=== PATIENT | female | born 1955 | race American Indian/Alaskan Native ===

== ENCOUNTER 2017-02-06 17:38 | Emergency (ER) | payer MEDICARE, MEDICAID ==
--- NOTE | 2017-02-06 19:20 | C.PDOC ---
History Of Present Illness 61 y/o female presents to ED with c/o left flank pain since this morning. Patient reports history of left flank pain. States pain worsens with voiding and radiates to her groin. Notes history of bladder surgery and bladder. Patient describes pain as 5/10. Denies fever or chills. Time Seen by Provider: 02/06/17 19:19 Chief Complaint (Nursing): Abdominal Pain History Per: Patient History/Exam Limitations: no limitations Onset/Duration Of Symptoms: Hrs Current Symptoms Are (Timing): Still Present Severity: Mild Pain Scale Rating Of: 5 Location Of Pain/Discomfort: Suprapubic Radiation Of Pain To:: Other (groin) Quality Of Discomfort: "Pain" Associated Symptoms: denies: Fever, Chills, Diarrhea Recent travel outside of the [place]: No Abnormal Vaginal Bleeding: No Past Medical History Reviewed: Historical Data, Nursing Documentation, Vital Signs Vital Signs: Last Vital Signs Temp 98.0 F 02/06/17 19:47 Pulse 93 H 02/06/17 19:47 Resp 20 02/06/17 19:47 BP 142/94 H 02/06/17 19:47 Pulse Ox 100 02/06/17 21:18 - Medical History PMH: Arthritis, HTN Family History: States: Unknown Family Hx - Social History Hx Alcohol Use: No Hx Substance Use: No - Immunization History Hx Tetanus Toxoid Vaccination: No Hx Influenza Vaccination: Yes Hx Pneumococcal Vaccination: No Review Of Systems Constitutional: Negative for: Fever, Chills Respiratory: Negative for: Cough, Wheezing Gastrointestinal: Positive for: Abdominal Pain, Other (flank pain ). Negative for: Nausea, Vomiting Genitourinary: Negative for: Hematuria Skin: Negative for: Rash Physical Exam - Physical Exam Appears: Non-toxic, No Acute Distress Skin: Warm, Dry Head: Atraumatic, Normacephalic Oral Mucosa: Moist Chest: Symmetrical Cardiovascular: Rhythm Regular Respiratory: No Rales, No Rhonchi, No Wheezing Gastrointestinal/Abdominal: Soft, Tenderness (suprapubic, left flank) Back: Normal Inspection Extremity: Normal ROM, Capillary Refill (< 2 sec. ) Neurological/Psych: Oriented x3, Normal Speech, Normal Cognition ED Course And Treatment - Laboratory Results Result Diagrams: 02/06/17 19:44 02/06/17 19:44 O2 Sat by Pulse Oximetry: 100 (RA) Pulse Ox Interpretation: Normal - CT Scan/US CT Abdomen/Pelvis Other Rad Studies (CT/US): Read By Radiologist, Radiology Report Reviewed CT/US Interpretation: IMPRESSION: No acute solid visceral abnormality; mild left ureterectasis, distal left ureter cannot be. visualized due to streak artifact from bilateral hip prostheses; possible constipation; mild ileus, no. obstruction Progress Note: Labs, pepcid, zofran, IV fluids. CT abdomen/pelvis and labs ordered. Medical Decision Making Medical Decision Making: Upon provider reevaluation patient is feeling better, is medically stable, and requires no further treatment in the ED at this time. Patient will be discharged home with Rx formacrobid and toradol. Counseling was provided and all questions were answered regarding diagnosis and need for follow up with the referred clinic. There is agreement to discharge plan. Return if symptoms persist or worsen. Disposition Counseled Patient/Family Regarding: Studies Performed, Diagnosis, Need For Followup - Disposition Referrals: [facility] [Outside] [facility] [Outside] Disposition: HOME/ ROUTINE Disposition Time: 19:20 Condition: FAIR Prescriptions: Nitrofurantoin Macrocrystals [Macrobid] 1 cap PO BID #14 cap traMADol [Ultram] 50 mg PO TID PRN #12 tab PRN Reason: Pain, Moderate (4-7) Instructions: Urinary Tract Infection in Women (DC), Abdominal Pain (ED), Gas and Bloating (ED) - Clinical Impression Clinical Impression: Abdominal pain, Constipation, UTI (urinary tract infection) - Scribe Statement The provider has reviewed the documentation as recorded by the Dilan Conner Provider Scribe Attestation: All medical record entries made by the Valdemaribana paula were at my direction and personally dictated by me. I have reviewed the chart and agree that the record accurately reflects my personal performance of the history, physical exam, medical decision making, and the department course for this patient. I have also personally directed, reviewed, and agree with the discharge instructions and disposition.
[2017-02-06] MEDS ORDERED: Sodium Chloride 0.9% 1,000 ML IV ONE (19:25)
[2017-02-06] MEDS ORDERED: Sodium Chloride 0.9% 1,000 ML ONE (19:36)
[2017-02-06 19:48] LABS: BASO # 0.1 K/uL (0.0-0.2); BASO % 1.2 % (0.0-2.0); EOS # 0.6 K/uL (0.0-0.7); EOS % 6.4 % (0.0-4.0); HEMATOCRIT 41.5 % (34.0-47.0); LYMPH # 2.1 K/uL (1.0-4.3); LYMPH % 22.6 % (20.0-40.0); MEAN CELL VOLUME 94.1 fL (81.0-99.0); MEAN CORPUSCULAR HEMOGLOBIN 30.8 pg (27.0-31.0); MEAN CORPUSCULAR HGB CONC 32.7 g/dL (33.0-37.0); MEAN PLATELET VOLUME 7.6 fL (7.2-11.7); MONO # 0.5 K/uL (0.0-0.8); MONO % 5.5 % (0.0-10.0); NRBC % 0.1 % (0.0-2.0); RED CELL DISTRIBUTION WIDTH 14.4 % (11.5-14.5); WHITE BLOOD COUNT 9.1 K/uL (4.8-10.8)
[2017-02-06 19:50] VITALS: RESP 20
[2017-02-06 19:55] LABS: CHLORIDE 99 mmol/L (98-107)
[2017-02-06 19:56] LABS: POTASSIUM 3.8 mmol/L (3.6-5.2); RBC URINE 47 /hpf (0-3); SODIUM 138 mmol/L (132-148); URINE BACTERIA MOD (<OCC); URINE BILIRUBIN NEGATIVE (NEGATIVE); URINE BLOOD 2+ (NEGATIVE); URINE COLOR Yellow (YELLOW); URINE GLUCOSE (UA) NORMAL (Normal); URINE KETONE NEGATIVE (NEGATIVE); URINE LEUKOCYTE ESTERASE 3+ Leu/uL (Negative); URINE PROTEIN 1+ mg/dL (NEGATIVE); URINE UROBILINOGEN NORMAL mg/dL (0.2-1.0); WBC URINE 225 /hpf (0-5)
[2017-02-06 19:58] LABS: ALB/GLOB RATIO 1.5 (1.0-2.1); ALKALINE PHOSPHATASE 79 U/L (38-126); AST/SGOT 25 U/L (14-36); BILIRUBIN,TOTAL 0.3 mg/dL (0.2-1.3); BLOOD UREA NITROGEN 10 mg/dL (7-17); CARBON DIOXIDE 29 mmol/L (22-30); GFR AFRICAN-AMERICAN > 60; TOTAL PROTEIN 7.7 g/dL (6.3-8.3)
[2017-02-06 19:59] LABS: ALT/SGPT 29 U/L (9-52); CALCIUM 9.2 mg/dl (8.6-10.4); GLUCOSE,RANDOM 67 mg/dL (65-105)
[2017-02-06] MEDS ORDERED: Morphine 4 MG/ML VIAL ONE (20:08)
--- NOTE | 2017-02-06 21:15 | CT ---
EXAM: CT Abdomen and Pelvis Without Intravenous Contrast CLINICAL HISTORY: 61 years old, female; Pain; Abdominal pain; Flank; Left; Additional info: Left flank pain, HX of bladder lift and ureter TECHNIQUE: Axial computed tomography images of the abdomen and pelvis without intravenous contrast. This CT exam was performed using one or more of the following dose reduction techniques: automated exposure control, adjustment of the mA and/or kV according to patient size, and/or use of iterative reconstruction technique. Coronal and sagittal reformatted images were created and reviewed. EXAM DATE/TIME: 02/06/2017 8:04 PM COMPARISON: There are no prior studies for comparison. FINDINGS: Lower thorax: Heart size is normal. There is a small hiatal hernia. There is minimal atelectasis and scarring at the lung bases. ABDOMEN: Liver: unremarkable Gallbladder and bile ducts: unremarkable Pancreas: unremarkable Spleen: unremarkable Adrenals: There is bilateral adrenal thickening. Kidneys and ureters: Right kidney is unremarkable. There is focal left renal scarring. There are no renal stones. There is no pelvocaliectasis. There is mild left ureterectasis. Distal ureter is obscured by streak artifact from the hip prostheses Stomach and bowel: Stomach is almost empty. Rotation is normal. Small bowel is mildly distended with fluid and air. Distention is radius distally. There is mild fecalization of the terminal ileum. Appendix is not identified. There is moderate stool in the colon. Appendix: See above. PELVIS: Bladder: Streak limits evaluation of the bladder. Reproductive: Streak artifact obscures much of the pelvis. Pelvic organs are not identified and may be absent. ABDOMEN and PELVIS: Intraperitoneal space: There is no definite fluid in the pelvis. There is no free air. Bones/joints: There are bilateral hip prostheses. There is extensive streak artifact. There are degenerative changes in the osseus structures. Soft tissues: There is a very small fat containing umbilical hernia. Vasculature: There are vascular calcifications. Lymph nodes: There is no pathologic adenopathy. IMPRESSION: No acute solid visceral abnormality; mild left ureterectasis, distal left ureter cannot be visualized due to streak artifact from bilateral hip prostheses; possible constipation; mild ileus, no obstruction Additional findings as described above.
[2017-02-06 21:55] VITALS: BP 149/97; PULSE 82; TEMP 98.5; O2SAT 99
== END 2017-02-06 21:55 | disposition home or self-care (01) ==
LOC: C.ER 17:38
DX: K59.00 Constipation, unspecified (principal); N39.0 Urinary tract infection, site not specified; R10.9 Unspecified abdominal pain
CPT/HCPCS: 74176; 80053; 81001; 83690; 85025; 85610; 85730; 96361; 96374; 96375; 99284; J1885; J2270; J2405; J7040

== ENCOUNTER 2017-04-01 06:48 | Observation (INO) | payer MEDICARE, MEDICAID ==
--- NOTE | 2017-04-01 07:52 | C.PDOC ---
History Of Present Illness 61 Y/O FEMALE, PMHx OF HTN, PRESENTS TO ED WITH C/O PERSISTENT HEADACHE ASSOCIATED WITH NAUSEA SINCE YESTERDAY. PT STATES SHE HAS NOT TAKEN LISINOPRIL IN 5 DAYS. ALSO REPORTS PERSISTENT CHEST TIGHTNESS, DESCRIBED BURNING SENSATION. DENIES COUGH, SOB, DIZZINESS, VISUAL CHANGES, VOMITING, SOB, NEW WEAKNESS OR NUMBNESS, OR OTHER ASSOCIATED SX. Time Seen by Provider: 04/01/17 07:26 Chief Complaint (Nursing): Headache History Per: Patient History/Exam Limitations: no limitations Onset/Duration Of Symptoms: Days Current Symptoms Are (Timing): Still Present Associated Symptoms: Nausea. denies: Blurred Vision, Vomiting Recent travel outside of the [place]: No Past Medical History Reviewed: Historical Data, Nursing Documentation, Vital Signs Vital Signs: Last Vital Signs Temp 98.7 F 04/01/17 10:09 Pulse 59 L 04/01/17 10:09 Resp 16 04/01/17 10:09 BP 125/75 04/01/17 10:09 Pulse Ox 95 04/01/17 10:51 - Medical History PMH: Arthritis, HTN Family History: States: Unknown Family Hx - Social History Hx Alcohol Use: No Hx Substance Use: No - Immunization History Hx Tetanus Toxoid Vaccination: No Hx Influenza Vaccination: Yes Hx Pneumococcal Vaccination: No Review Of Systems Except As Marked, All Systems Reviewed And Found Negative. Constitutional: Negative for: Fever, Chills Cardiovascular: Positive for: Chest Pain ("TIGHTNESS"). Negative for: Palpitations, Light Headedness Respiratory: Negative for: Cough, Shortness of Breath, Wheezing Gastrointestinal: Positive for: Nausea. Negative for: Vomiting, Abdominal Pain Musculoskeletal: Negative for: Neck Pain Skin: Negative for: Rash Neurological: Positive for: Headache. Negative for: Dizziness Physical Exam - Physical Exam Appears: Non-toxic, Other (MODERATE DISTRESS) Skin: Warm, Dry Head: Atraumatic, Normacephalic Eye(s): bilateral: Normal Inspection, EOMI Oral Mucosa: Moist Neck: Supple Chest: Symmetrical Cardiovascular: Rhythm Regular Respiratory: Normal Breath Sounds, No Accessory Muscle Use, No Rales, No Rhonchi , No Wheezing Gastrointestinal/Abdominal: Soft, No Tenderness, No Guarding, No Rebound Back: Normal Inspection Extremity: Normal ROM, Capillary Refill (< 2 SEC.) Neurological/Psych: Oriented x3, Normal Speech, Normal Cognition ED Course And Treatment - Laboratory Results Result Diagrams: 04/01/17 08:20 04/01/17 08:20 ECG: Interpreted By Me ECG Rhythm: Sinus Bradycardia ECG Interpretation: Normal Rate From EC O2 Sat by Pulse Oximetry: 95 Pulse Ox Interpretation: Normal - CT Scan/US CT HEAD Other Rad Studies (CT/US): Read By Radiologist, Radiology Report Reviewed CT/US Interpretation: IMPRESSION: Chronic microvascular ischemic change. Sinus mucosal disease. If focal neurologic deficit persists, consider MRI. Progress - Data Reviewed Data Reviewed: Lab, Diagnostic imaging, EKG, Old records - Critical Care Citical Care: Excluding Proc Time Critical Care Time: 120 minutes Medical Decision Making Medical Decision Making: PT ADVISED POSSIBILITY FOR HOSPITAL ADMISSION BASED ON SYMPTOMATIC PRESENTATION , INITIALLY STATES SHE DOES NOT WANT TO BE ADMITTED. ED OBSERVATION Discharge: Yes Date of observation admission: 04/01/17 Time of observation admission: 07:30 - Observation admission statement Patient is being placed in observation because:: HEADACHE; CP; UNCONTROLL HTN - Goals of Observation Goals of observation are:: RO BLEED; RO ACS; SX IMPROVE; NEURO INTACT - Progress Note Progress Note: 04/01/17 10:49 FEELS BETTER. STILL W RESIDUAL PERSON BUT BETTER THAN BEFORE. 125/70. PT DOESNT WANT ADMISSION, WILL DC HOME. REFILL HTN RX, OTC PAIN MEDS Disposition Counseled Patient/Family Regarding: Studies Performed, Diagnosis, Need For Followup, Rx Given - Disposition Disposition: HOME/ ROUTINE Disposition Time: 10:50 Condition: IMPROVED - Clinical Impression Clinical Impression: Headache, Chest pain, Hypertension - Scribe Statement The provider has reviewed the documentation as recorded by the Dilan CUNHA Provider Attestation: All medical record entries made by the Dilan were at my direction and personally dictated by me. I have reviewed the chart and agree that the record accurately reflects my personal performance of the history, physical exam, medical decision making, and the department course for this patient. I have also personally directed, reviewed, and agree with the discharge instructions and disposition.
[2017-04-01] MEDS ORDERED: Labetalol 25mg/5ml Syringe IVP STA (07:53)
[2017-04-01] MEDS ORDERED: Labetalol 25mg/5ml Syringe ONE (08:04)
[2017-04-01 08:34] LABS: BASO % 0.7 % (0.0-2.0); EOS # 0.5 K/uL (0.0-0.7); EOS % 10.1 % (0.0-4.0); LYMPH # 1.7 K/uL (1.0-4.3); LYMPH % 32.3 % (20.0-40.0); MEAN CELL VOLUME 94.6 fL (81.0-99.0); MEAN CORPUSCULAR HEMOGLOBIN 30.7 pg (27.0-31.0); MEAN CORPUSCULAR HGB CONC 32.5 g/dL (33.0-37.0); MEAN PLATELET VOLUME 7.1 fL (7.2-11.7); MONO # 0.5 K/uL (0.0-0.8); MONO % 9.4 % (0.0-10.0); NEUT # 2.5 K/uL (1.8-7.0); NEUT % 47.5 % (50.0-75.0); NRBC % 0.2 % (0.0-2.0); RBC 4.23 Mil/uL (3.80-5.20); RED CELL DISTRIBUTION WIDTH 14.8 % (11.5-14.5); WHITE BLOOD COUNT 5.3 K/uL (4.8-10.8)
[2017-04-01 09:03] LABS: BLOOD UREA NITROGEN 9 mg/dL (7-17); GFR AFRICAN-AMERICAN > 60; GFR NON-AFRICAN AMERICAN > 60
[2017-04-01 09:04] LABS: CALCIUM 8.9 mg/dl (8.6-10.4)
--- NOTE | 2017-04-01 09:05 | CT ---
PROCEDURE: CT HEAD WITHOUT CONTRAST. HISTORY: Headache. Hypertension. Evaluate for hemorrhage. COMPARISON: None available. TECHNIQUE: Axial computed tomography images were obtained through the head/brain without intravenous contrast. Radiation dose: Total exam DLP = 747 mGy-cm. This CT exam was performed using one or more of the following dose reduction techniques: Automated exposure control, adjustment of the mA and/or kV according to patient size, and/or use of iterative reconstruction technique. FINDINGS: HEMORRHAGE: No intracranial hemorrhage. BRAIN: No mass effect or edema. Scattered focal lucencies in the subcortical and periventricular white matter suggestive for chronic microvascular ischemic change. VENTRICLES: Unremarkable. No hydrocephalus. CALVARIUM: Unremarkable. PARANASAL SINUSES: Mucosal thickening of the ethmoid air cells. MASTOID AIR CELLS: Unremarkable as visualized. No inflammatory changes. OTHER FINDINGS: None. IMPRESSION: Chronic microvascular ischemic change. Sinus mucosal disease. If focal neurologic deficit persists, consider MRI.
--- NOTE | 2017-04-01 09:53 | RAD ---
PROCEDURE: CHEST RADIOGRAPH, 1 VIEW HISTORY: CHEST PAIN, HTN COMPARISON: None available. FINDINGS: LUNGS: Mild venous congestion. PLEURA: No pneumothorax or pleural fluid seen. CARDIOVASCULAR: Prominent and tortuous aorta. OSSEOUS STRUCTURES: No significant abnormalities. VISUALIZED UPPER ABDOMEN: Normal. OTHER FINDINGS: None. IMPRESSION: Mild venous congestion.
[2017-04-01 10:11] VITALS: TEMP 98.7
[2017-04-01 10:51] VITALS: O2SAT 95
[2017-04-01 11:37] VITALS: BP 137/84; PULSE 62; RESP 18
--- NOTE | 2017-04-04 14:12 | CARD ---
APPROVED REPORT EKG Measurement Heart [id number] VT [id number] [id number] <Conclusion> Sinus bradycardia Otherwise normal ECG
== END 2017-04-01 10:51 | disposition home or self-care (01) ==
LOC: C.ER 06:48 → C.9OBSV 07:30
PROVIDERS: ADMIT Emergency Medicine; ATTEND Emergency Medicine
DX: I16.0 Hypertensive urgency (principal); R51 Headache; R07.9 Chest pain, unspecified
CPT/HCPCS: 36415; 70450; 71010; 80048; 84484; 85025; 96374; 96375; 99285; G0378; J1885

== ENCOUNTER 2017-05-28 11:15 | Emergency (ER) | payer MEDICARE, MEDICAID ==
[2017-05-28 11:25] VITALS: RESP 18; TEMP 98.4
--- NOTE | 2017-05-28 11:42 | C.PDOC ---
History Of Present Illness 61 y/o female presents to the ED for evaluation of lower back pain which began yesterday. Patient notes her pain began after he was lifting heavy boxes at home. Pain occasionally radiates down both of her legs. Patient has a history of lower back pain and notes her current symptoms are similar to prior episodes. She denies fever/chills, dysuria/hematuria, urinary/bowel incontinence , urinary retention, abdominal pain, extremity numbness/weakness , direct trauma. Time Seen by Provider: 05/28/17 11:37 Chief Complaint (Nursing): Back Pain History Per: Patient History/Exam Limitations: no limitations Onset/Duration Of Symptoms: Hrs Current Symptoms Are (Timing): Still Present Quality Of Discomfort: "Pain" Severity: Moderate Previous Symptoms: Back Pain, Chronic Pain Associated Symptoms: denies: Incontinence, New Weakness, New Numbness Additional History Per: Patient Past Medical History Reviewed: Historical Data, Nursing Documentation, Vital Signs Vital Signs: Last Vital Signs Temp 98.4 F 05/28/17 11:23 Pulse 88 05/28/17 12:47 Resp 18 05/28/17 12:47 BP 132/75 05/28/17 12:47 Pulse Ox 99 05/28/17 14:34 - Medical History PMH: Arthritis, HTN Surgical History: No Surg Hx Family History: States: No Known Family Hx - Social History Hx Alcohol Use: No Hx Substance Use: No - Immunization History Hx Tetanus Toxoid Vaccination: No Hx Influenza Vaccination: Yes Hx Pneumococcal Vaccination: No Review Of Systems Except As Marked, All Systems Reviewed And Found Negative. Constitutional: Negative for: Fever, Chills Cardiovascular: Negative for: Chest Pain Respiratory: Negative for: Shortness of Breath Gastrointestinal: Negative for: Nausea, Vomiting, Abdominal Pain, Diarrhea Genitourinary: Negative for: Dysuria, Incontinence, Hematuria Musculoskeletal: Positive for: Back Pain (lower ) Neurological: Negative for: Weakness, Numbness Physical Exam - Physical Exam Appears: Well, Non-toxic, Other (in mild to moderate pain, moaning, ambulatory in the ED ) Skin: Normal Color, Warm, Dry Head: Normacephalic Eye(s): bilateral: Normal Inspection Oral Mucosa: Moist Neck: Supple Chest: Symmetrical Cardiovascular: Rhythm Regular Respiratory: Normal Breath Sounds, No Rales, No Rhonchi, No Wheezing Gastrointestinal/Abdominal: Normal Exam, Bowel Sounds, Soft, No Tenderness Back: No CVA Tenderness, No Vertebral Tenderness, Paraspinal Tenderness (lumbar ) Extremity: Normal ROM, No Tenderness, No Pedal Edema, No Calf Tenderness, Capillary Refill (<2 seconds ), No Deformity Extremity: Bilateral: Atraumatic, Normal Color And Temperature, Normal ROM Neurological/Psych: Oriented x3, Normal Motor, Normal Sensation Gait: Steady ED Course And Treatment O2 Sat by Pulse Oximetry: 99 (on RA ) Pulse Ox Interpretation: Normal Progress Note: Patient given Toradol IM, Valium PO, and Prednisone PO. Reevaluation Time: 12:45 Reassessment Condition: Improved (On reassessment, patient states her pain has improved and she is feeling better. Patient ambulating normally in ED. Rxs given vfor toradol and valium, and patient instructed to follow up with PMD/ clinic in 1-2 days. She understands she should return to ED if symptoms worsen. 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 REVIEWED: 02/07/2017 2 02/06/2017 TRAMADOL HCL 50 MG TABLET 12.0 4 [place] SAP [id number] BRIDGER ( [id number]) 0 15.0 Comm Ins [place] 01/03/2017 1 01/03/2017 ALPRAZOLAM 0.25 MG TABLET 30.0 30 DO SIE [id number] RITE ( 8779) 0 Private Pay [place] 11/19/2016 1 11/19/2016 ACETAMINOPHEN-COD #3 TABLET 10.0 1 MA GTZ [id number] RITE ( 8779) 0 45.0 [place] 11/16/2016 1 11/16/2016 HYDROCODON-ACETAMINOPHEN 5-325 15.0 3 TA AFO [id number] RITE (8779) 0 25.0 [place] 10/01/2016 1 10/01/2016 OXYCODONE-ACETAMINOPHEN 5-325 10.0 2 JA IMM [id number] WALGR (0658) 0 37.5 [place] 09/29/2016 4 09/29/2016 TRAMADOL HCL 50 MG TABLET 12.0 3 CH HARVEY [id number] SHOP ( 0479) 0 20.0 [place] 09/27/2016 4 09/27/2016 ALPRAZOLAM 0.25 MG TABLET 30.0 30 DO SIE [id number] SHOP ( 2527) 0 [place] 09/25/2016 4 09/25/2016 ALPRAZOLAM 0.25 MG TABLET 5.0 5 MA HOL [id number] SHOP ( 6757) 0 [place] 08/17/2016 3 08/17/2016 ALPRAZOLAM 0.25 MG TABLET 30.0 30 DO SIE [id number] RITE ( 8779) 0 [place] 07/14/2016 4 07/14/2016 ALPRAZOLAM 0.25 MG TABLET 30 30 Do Sie [id number] SHOP ( 6794) 0 [place] 06/18/2016 1 06/09/2016 ALPRAZOLAM 0.25 MG TABLET 30 30 Do Sie [id number] WALGR ( 5699) 0 [place] Disposition Counseled Patient/Family Regarding: Diagnosis, Need For Followup, Rx Given - Disposition Referrals: [facility] [Outside] Disposition: HOME/ ROUTINE Disposition Time: 12:45 Condition: STABLE Additional Instructions: FOLLOW UP WITH YOUR DOCTOR/CLINIC IN 1-2 DAYS USE MEDICATIONS DIRECTED RETURN TO ER IF SYMPTOMS WORSEN Prescriptions: diaZEpam [Valium] 5 mg PO BID PRN #12 tab PRN Reason: Muscle Spasm Ketorolac Tromethamine [Toradol] 10 mg PO BID PRN #15 tab PRN Reason: pain predniSONE [predniSONE Tab] 40 mg PO DAILY #8 tab Instructions: Acute Low Back Pain (ED) Forms: [email or web address] (Cuban) Print Language: GERMAN - POA Present On Arrival: None - Clinical Impression Clinical Impression: Low back pain - Scribe Statement The provider has reviewed the documentation as recorded by the Scribe (Marlys Siddiqui) Provider Attestation: All medical record entries made by the Scribe were at my direction and personally dictated by me. I have reviewed the chart and agree that the record accurately reflects my personal performance of the history, physical exam, medical decision making, and the department course for this patient. I have also personally directed, reviewed, and agree with the discharge instructions and disposition.
[2017-05-28 12:48] VITALS: BP 132/75; PULSE 88
[2017-05-28 14:26] VITALS: O2SAT 99
== END 2017-05-28 12:48 | disposition home or self-care (01) ==
LOC: C.ER 11:15
DX: M54.5 Low back pain (principal)
CPT/HCPCS: 96372; 99283; J1885

== ENCOUNTER 2017-09-12 11:57 | Inpatient (IN) | payer OTHER, MEDICAID ==
[2017-09-12 13:06] LABS: BASO # 0.1 K/uL (0.0-0.2); BASO % 1.2 % (0.0-2.0); EOS # 0.3 K/uL (0.0-0.7); EOS % 4.6 % (0.0-4.0); LYMPH # 1.4 K/uL (1.0-4.3); LYMPH % 20.2 % (20.0-40.0); MEAN CELL VOLUME 94.5 fL (81.0-99.0); MEAN CORPUSCULAR HGB CONC 33.9 g/dL (33.0-37.0); MEAN PLATELET VOLUME 6.6 fL (7.2-11.7); MONO # 0.5 K/uL (0.0-0.8); MONO % 7.6 % (0.0-10.0); NRBC % 0.1 % (0.0-2.0); RED CELL DISTRIBUTION WIDTH 15.2 % (11.5-14.5); WHITE BLOOD COUNT 7.1 K/uL (4.8-10.8)
[2017-09-12 13:16] LABS: ALB/GLOB RATIO 0.9 (1.0-2.1); ALKALINE PHOSPHATASE 103 U/L (38-126); ALT/SGPT 38 U/L (9-52); AST/SGOT 26 U/L (14-36); BILIRUBIN,TOTAL 0.6 mg/dL (0.2-1.3); BLOOD UREA NITROGEN 9 mg/dL (7-17); CALCIUM 9.3 mg/dl (8.6-10.4); CARBON DIOXIDE 34 mmol/L (22-30); CHLORIDE 99 mmol/L (98-107); GFR AFRICAN-AMERICAN > 60; GLUCOSE,RANDOM 104 mg/dL (65-105); POTASSIUM 4.1 mmol/L (3.6-5.2); SODIUM 140 mmol/L (132-148); TOTAL PROTEIN 8.8 g/dL (6.3-8.3)
[2017-09-12 14:00] LABS: ALCOHOL SERUM < 10 mg/dl (0-10)
[2017-09-12 14:15] LABS: RBC URINE 10 /hpf (0-3); URINE BACTERIA RARE (<OCC); URINE BILIRUBIN NEGATIVE (NEGATIVE); URINE BLOOD 1+ (NEGATIVE); URINE COLOR Straw (YELLOW); URINE GLUCOSE (UA) NORMAL (Normal); URINE KETONE NEGATIVE (NEGATIVE); URINE LEUKOCYTE ESTERASE 2+ Leu/uL (Negative); URINE PROTEIN NEGATIVE (NEGATIVE); URINE UROBILINOGEN NORMAL mg/dL (0.2-1.0); WBC URINE 13 /hpf (0-5)
--- NOTE | 2017-09-12 14:55 | C.PDOC ---
History Of Present Illness 61 year old female with a history of substance abuse presents to the ED as a prescreen for detox from cocaine, opiates, crack, drinks half a pint of vodka a day, and 2 bags of heroin a week. Patient denies suicidal ideations, homicidal ideations, or any physical complaints at this time. Time Seen by Provider: 09/12/17 13:21 Chief Complaint (Nursing): Substance Abuse History Per: Patient History/Exam Limitations: no limitations Current Symptoms Are (Timing): Still Present Suicide/Self Injury Attempted (Context): None Associated Symptoms: denies: Suicidal Thoughts, Suicidal Plan Involuntary Hold By: None Recent travel outside of the [place]: No Past Medical History Reviewed: Historical Data, Nursing Documentation, Vital Signs Vital Signs: Last Vital Signs Temp 98.4 F 09/12/17 14:05 Pulse 82 09/12/17 14:05 Resp 20 09/12/17 14:05 BP 177/105 H 09/12/17 14:05 Pulse Ox 99 09/12/17 14:55 - Medical History PMH: Arthritis, HTN Family History: States: Unknown Family Hx - Social History Hx Alcohol Use: No Hx Substance Use: No - Immunization History Hx Tetanus Toxoid Vaccination: No Hx Influenza Vaccination: Yes Hx Pneumococcal Vaccination: No Review Of Systems Constitutional: Negative for: Fever, Chills Cardiovascular: Negative for: Chest Pain, Palpitations Respiratory: Negative for: Cough, Shortness of Breath Gastrointestinal: Negative for: Nausea, Vomiting, Abdominal Pain Psych: Negative for: Suicidal ideation Physical Exam - Physical Exam Appears: Non-toxic, No Acute Distress Skin: Warm, Dry, No Rash Head: Atraumatic, Normacephalic, No Tenderness Eye(s): bilateral: Normal Inspection, PERRL, EOMI Oral Mucosa: Moist Neck: Supple Chest: Symmetrical, No Deformity Cardiovascular: Rhythm Regular, No Murmur Respiratory: No Rales, No Rhonchi, No Wheezing, Other (clear to auscultation bilaterally ) Gastrointestinal/Abdominal: Soft, No Tenderness, No Distention, No Guarding, No Rebound Extremity: Normal ROM, No Tenderness Neurological/Psych: Oriented x3, Other (Patient is calm and cooperative) ED Course And Treatment - Laboratory Results Result Diagrams: 09/12/17 13:02 09/12/17 13:02 Lab Interpretation: Abnormal (tox + cocaine/Opiates, etoh neg.) Urine POC: Negative O2 Sat by Pulse Oximetry: 99 (RA) Pulse Ox Interpretation: Normal Progress Note: Blood work and labs were ordered. Librium 100 mg PO for anxiety Reevaluation Time: 14:54 Reassessment Condition: Improved Medical Decision Making Medical Decision Making: polysubstance abuse Disposition Doctor Will See Patient In The: Hospital Counseled Patient/Family Regarding: Studies Performed, Diagnosis - Disposition Disposition: HOSPITALIZED Disposition Time: 14:54 Condition: GOOD Forms: [employer] (Israeli) - Clinical Impression Clinical Impression: Polysubstance (including opioids) dependence with physiol dependence, Alcohol abuse - Scribe Statement The provider has reviewed the documentation as recorded by the Scribe Jeana Lopez All medical record entries made by the Valdemaribe were at my direction and personally dictated by me. I have reviewed the chart and agree that the record accurately reflects my personal performance of the history, physical exam, medical decision making, and the department course for this patient. I have also personally directed, reviewed, and agree with the discharge instructions and disposition.
[2017-09-12] MEDS ORDERED: Aluminum Hydroxide/Magnesium Hydroxide Susp (30 mL) PO PRN (16:59)
--- NOTE | 2017-09-12 21:17 | PCM.BM ---
<Dorita Anderson - Last Filed: 09/12/17 21:16> Treatment Plan Problems - Problems identified on initial assessmt Potential for alcohol withdrawal Date Initiated: 09/12/17 Time Initiated: 21:17 Assessment reference: NA Status: Active Priority: 1 Potential for opiate withdrawal Date Initiated: 09/12/17 Time Initiated: 21:17 Assessment reference: NA Status: Active Priority: 2 Treatment assets and liabiliti Patient Assests: cooperative, ADL independent, negotiates basic needs, cognitively intact Patient Liabilities: substance abuse - Milieu Protocol Maintain good personal hygiene: daily Encourage regular showers, daily Remind patient to perform daily oral care, daily Assist patient to perform ADL's Conduct patient checks and document Observation sheet: Q15 minutes Maintain personal safety: every shift Educate patient to report safety concerns to staff, every shift Monitor environment for contraband/sharps Medication safety: Monitor for expected outcome, potential side effects: every shift, Assess barriers to learning: every shift, Assess readiness for medication education: every shift <Maya Montoya - Last Filed: 09/13/17 11:27> Family Contact Family involvement: Famliy/SO not involved Family contact: Patient agrees to contact - Goals for Treatment Patient goals for treatment: Complete detox and attend grief counseling. Discharge/Continuing Care - Education Needs Education Needs: Patient Medication, Patient Diagnosis/Disease Process, Patient Coping Skills, Patient Anger Management skills, Patient Placement options, Patient Community resources (grief counseling) - Discharge Discharge Criteria: No longer exhibiting s/s of withdrawal, Reduction of target symptoms Discharge to:: Home, With Family - Treatment Team Participation Patient/Family/SO Statement: 09/13/17 11:29 "I need to talk about my grief..." Discussed with Family/SO: No Was Patient/Family/SO present at Treatment Team Meeting: Yes <Meme Ely - Last Filed: 09/14/17 08:00> - Diagnosis (1) Alcohol use disorder, severe, dependence Status: Acute Interventions: 09/14/17 07:59 * Assess 7x/week regarding severity of withdrawal * Educate regarding risks, benefits, side effects and alternatives of medications * Use Motivational Interviewing for abstinence * Use CBT for relapse prevention * Medication management for withdrawal symptoms * Encourage medication assisted treatment * (2) Opioid use disorder, severe, dependence Status: Acute Interventions: 09/14/17 07:59 * Assess 7x/week regarding severity of withdrawal * Educate regarding risks, benefits, side effects and alternatives of medications * Use Motivational Interviewing for abstinence * Use CBT for relapse prevention * Medication management for withdrawal symptoms * Encourage medication assisted treatment * (3) Cocaine use disorder, severe, dependence Status: Acute Interventions: 09/14/17 07:59 * Assess 7x/week regarding severity of withdrawal * Educate regarding risks, benefits, side effects and alternatives of medications * Use Motivational Interviewing for abstinence * Use CBT for relapse prevention * Medication management for withdrawal symptoms * Encourage medication assisted treatment *
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
--- NOTE | 2017-09-14 10:17 | PCM.PYCHPN ---
Psychiatric Progress Note - Psychiatric Progress Note Patient seen today, length of contact: 16 min Patient Chief Complaint: "I'm still tired" Problems Identified/Issues Discussed: This patient was seen, chart reviewed, and case discussed with staff. Patient reports improving sleep. She states she feels anxious at times but is unsure why. She states, "when I'm not anxious, I feel fine." She reports some withdrawal symptoms of abdominal pain and cramping and diarrhea. She denies any feelings of depression. She denies any auditory or visual hallucinations or feelings of paranoia. She denies any suicidal or homicidal ideations. She is mostly isolated in her room with limited social interactions. Patient is compliant with medications and denies any side effects. Symptoms are improving but need more time to stabilize. After care discussed, support and psychoeducation given. Medication Change: Yes (Librium taper ) Medical Record Reviewed: Yes Mental Status Examination - Cognitive Function Orientation: Person, Place, Situation, Time Memory: Intact Attention: Poor Concentration: Poor Association: WNL Fund of Knowledge: WNL - Mood Mood: Depressed, Anxious - Affect Affect: Constricted, Depressed - Speech Speech: Soft - Formal Thought Process Formal Thought Process: No Impairment - Suicidal Ideation Suicidal Ideation: No - Homicidal Ideation Homicidal Ideation: No Goal/Treatment Plan - Goal/Treatment Plan Need for Continued Stay: Remain at risks for inpatient hospitalization, Discharge may exacerbated symptoms, Severe functional impairment Progress Toward Problem(s) and Goals/Treatment Plan: Librium detox Gabapentin for augmentation As needed medications Attend groups and activities Supportive therapy and psychoeducation [place] for abstinence CBT for relapse prevention Encourage MAT Refer to rehab or IOP, and self-help groups. Smoking cessation with [place] Nicotine patch if requested
--- NOTE | 2017-09-15 11:48 | PCM.PYCHPN ---
Psychiatric Progress Note - Psychiatric Progress Note Patient seen today, length of contact: 17 min Patient Chief Complaint: "I'm still tired" Problems Identified/Issues Discussed: This patient was seen, chart reviewed, and case discussed with staff. Patient reports improving withdrawal symptoms, though feeling some body aches that she attributes to her arthritis. She states "sometimes I feel weak but maybe that's just the arthritis." She otherwise believes that she is improving. Patient is compliant with medications and denies any side effects. Symptoms are improving but need time to stabilize. After care discussed, hopes to attend [facility] in [place], [place]. Support and psychoeducation given. Medication Change: Yes (Librium taper ) Medical Record Reviewed: Yes Mental Status Examination - Cognitive Function Orientation: Person, Place, Situation, Time Memory: Intact Attention: WNL Concentration: Poor Association: WNL Fund of Knowledge: WNL - Mood Mood: Anxious - Affect Affect: Constricted - Speech Speech: Soft - Formal Thought Process Formal Thought Process: No Impairment - Suicidal Ideation Suicidal Ideation: No - Homicidal Ideation Homicidal Ideation: No Goal/Treatment Plan - Goal/Treatment Plan Need for Continued Stay: Remain at risks for inpatient hospitalization, Discharge may exacerbated symptoms, Severe functional impairment Progress Toward Problem(s) and Goals/Treatment Plan: Librium detox Gabapentin for augmentation As needed medications Attend groups and activities Supportive therapy and psychoeducation [place] for abstinence CBT for relapse prevention Encourage MAT Refer to rehab or IOP, and self-help groups. Smoking cessation with [place] Nicotine patch if requested
--- NOTE | 2017-09-16 13:32 | PCM.PYCHPN ---
Psychiatric Progress Note - Psychiatric Progress Note Patient seen today, length of contact: 17 min Patient Chief Complaint: "I'm feeling better" Problems Identified/Issues Discussed: The pt is seen, chart reviewed, case discussed with staff. The pt is compliant with medications and reports no side-effects. Symptoms are improving but needs more time to stabilize. After care discussed, support and psychoeducation given. Medication Change: Yes (Librium and short methadone detox ) Medical Record Reviewed: Yes Mental Status Examination - Cognitive Function Orientation: Person, Place, Situation, Time Memory: Intact Attention: WNL Concentration: Poor Association: WNL Fund of Knowledge: WNL - Mood Mood: Anxious - Affect Affect: Constricted - Speech Speech: Soft - Formal Thought Process Formal Thought Process: No Impairment - Suicidal Ideation Suicidal Ideation: No - Homicidal Ideation Homicidal Ideation: No Goal/Treatment Plan - Goal/Treatment Plan Need for Continued Stay: Remain at risks for inpatient hospitalization, Discharge may exacerbated symptoms, Severe functional impairment Progress Toward Problem(s) and Goals/Treatment Plan: Librium detox Methadone detox Gabapentin for augmentation As needed medications Attend groups and activities Supportive therapy and psychoeducation [place] for abstinence CBT for relapse prevention Encourage MAT Refer to rehab or IOP, and self-help groups. Smoking cessation with [place] Nicotine patch if requested
[2017-09-16 13:38] VITALS: RESP 18
[2017-09-17 09:54] VITALS: BP 120/80; PULSE 86; TEMP 98.5; O2SAT 97
[2017-09-17] MEDS ORDERED: Influenza Vaccine 60 mcg/0.5 mL SYR (4YR UP) IM ONE (10:01)
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
== END 2017-09-17 10:30 | disposition home or self-care (01) | DRG 895 ==
LOC: C.ER 11:57 → C.7D 14:55
PROVIDERS: ADMIT Psychiatry & Neurology Psychiatry; ATTEND Psychiatry & Neurology Psychiatry
PROC: HZ2ZZZZ Detoxification Services for Substance Abuse Treatment (ICD-10-PCS; principal; 2017-09-12)
PROC: HZ59ZZZ Individual Psychotherapy for Substance Abuse Treatment, Supportive (ICD-10-PCS; 2017-09-12)
PROC: HZ46ZZZ Group Counseling for Substance Abuse Treatment, Psychoeducation (ICD-10-PCS; 2017-09-12)
PROC: HZ90ZZZ Pharmacotherapy for Substance Abuse Treatment, Nicotine Replacement (ICD-10-PCS; 2017-09-12)
DX: F11.23 Opioid dependence with withdrawal (principal); F10.239 Alcohol dependence with withdrawal, unspecified; F14.20 Cocaine dependence, uncomplicated; F12.90 Cannabis use, unspecified, uncomplicated; R45.851 Suicidal ideations; F17.210 Nicotine dependence, cigarettes, uncomplicated; I10 Essential (primary) hypertension; M19.90 Unspecified osteoarthritis, unspecified site; Z62.810 Personal history of physical and sexual abuse in childhood; Z80.3 Family history of malignant neoplasm of breast; Z90.710 Acquired absence of both cervix and uterus